=== PATIENT | female | born 1945 | race Caucasian/White ===

== ENCOUNTER 2018-02-19 21:36 | Emergency (ER) | payer MEDICAID, MEDICARE ==
[2018-02-20] MEDS ORDERED: Acetaminophen TAB* 325 MG PO ONE (00:26)
--- NOTE | 2018-02-20 00:38 | ED ---
Back Pain - HPI Summary HPI Summary: Patient is a 72-year-old female who presents emergency department for a low back injury. [facility]. She reportedly was sitting in a chair tonight when the chair suddenly broke and she fell to the ground landing on her bottom. No head injury of LOC. Pain does not radiate into legs. Denies numbness , tingling or weakness. Symptoms are mild in severity. Movement makes symptoms worse. Rest makes symptoms better. - History of Current Complaint Chief Complaint: EDGeneral Stated Complaint: FALL Time Seen by Provider: 02/20/18 00:19 Hx Obtained From: Patient, Family/Underwriting Clerks Supervisor Pain Intensity: 0 - Allergies/Home Medications Allergies/Adverse Reactions: Allergies Allergy/AdvReac Type Severity Reaction Status Date / Time No Known Allergies Allergy Verified 02/19/18 21:45 PMH/Surg Hx/FS Hx/Imm Hx Previously Healthy: Yes Endocrine/Hematology History: Denies: Hx Diabetes Cardiovascular History: Reports: Hx Hypertension Denies: Hx Pacemaker/ICD Respiratory History: Denies: Hx Asthma GI History: Reports: Hx Gastroesophageal Reflux Disease Sensory History: Reports: Hx Contacts or Glasses - READING GLASSES Denies: Hx Hearing Aid Opthamlomology History: Reports: Hx Contacts or Glasses - READING GLASSES Neurological History: Reports: Other Neuro Impairments/Disorders - MENTALLY CHALLENGED Psychiatric History: Denies: Hx Panic Disorder - Cancer History Hx Chemotherapy: No Hx Radiation Therapy: No - Surgical History Surgery Procedure, Year, and Place: ORIF LEFT WRIST 09/2013, CORRECTIVE WRIST 2013,HYSTERECTOMY Hx Anesthesia Reactions: No Infectious Disease History: No Infectious Disease History: Denies: Traveled Outside the [place] in Last 30 Days - Social History Alcohol Use: None Substance Use Type: Reports: None Smoking Status (MU): Never Smoked Tobacco Have You Smoked in the Last Year: No Review of Systems Positive: Other - Low back pain Skin: Negative Negative: Weakness, Paresthesia, Numbness All Other Systems Reviewed And Are Negative: Yes Physical Exam Triage Information Reviewed: Yes Vital Signs On Initial Exam: Initial Vitals Temp Pulse Resp BP Pulse Ox 97.0 F 59 16 141/66 97 02/19/18 21:40 02/19/18 21:40 02/19/18 21:40 02/19/18 21:40 02/19/18 21:40 Vital Signs Reviewed: Yes Appearance: Positive: Well-Appearing - Pt. sitting up in bed in NAD. Pleasant. Underwriting Clerks Supervisor present. Skin: Positive: Warm, Dry Head/Face: Positive: Normal Head/Face Inspection Eyes: Positive: Normal Neck: Positive: Supple Musculoskeletal: Positive: Strength/ROM Intact, Other - Pain on palpation to the low midline lumbar spine. Neurological: Positive: Normal, CN Intact II-III Psychiatric: Positive: Affect/Mood Appropriate Diagnostics - Vital Signs Vital Signs Temp Pulse Resp BP Pulse Ox 02/19/18 23:40 97.0 F 59 16 152/70 99 02/19/18 21:40 97.0 F 59 16 141/66 97 - Laboratory Lab Statement: Any lab studies that have been ordered have been reviewed, and results considered in the medical decision making process. Back Pain Course/Dx - Course Course Of Treatment: Pt. presenting for a low back injury after falling from a chair. No neuro deficts. She has minimal pain. Tylenol and xray ordered. Xrays reviewed by myself and Dr. Zapata and are negative for fracture or acute findings. Results discussed. To f.u with PCP. Ice intermittently. Tylenol for pain as directed. - Diagnoses Differential Diagnosis/HQI/PQRI: Positive: Fracture, Herniated Disc, Strain, Sprain Provider Diagnoses: Sacral contusion Discharge - Sign-Out/Discharge Documenting (check all that apply): Discharge/Admit/Transfer - Discharge Plan Condition: Good Disposition: HOME Patient Education Materials: Low Back Strain (ED) Referrals: Jamaal Marie MD [Primary Care Provider] - Additional Instructions: Follow up with PCP Ice intermittently Tylenol for pain as directed Return to ER if symptoms change or worsen - Billing Disposition and Condition Condition: GOOD Disposition: Home
[2018-02-20 01:10] VITALS: BP 134/79
--- NOTE | 2018-02-20 07:43 | RAD ---
Indication: Back pain after fall. 5 views of the lumbar spine are reviewed. The vertebral bodies appear normal height. Disc spaces all well-preserved. Pedicles appear intact. IMPRESSION: No fracture of the lumbar spine is noted.
== END 2018-02-20 01:08 | disposition home or self-care (01) ==
LOC: ED 21:36
DX: S30.0XXA Contusion of lower back and pelvis, initial encounter (principal); W07.XXXA Fall from chair, initial encounter; Y92.9 Unspecified place or not applicable; I10 Essential (primary) hypertension; K21.9 Gastro-esophageal reflux disease without esophagitis; F79 Unspecified intellectual disabilities
CPT/HCPCS: 72110; 99282; A9270-GY